=== PATIENT | male | born 1965 | race Caucasian/White ===

== ENCOUNTER 2021-02-23 01:17 | Observation (INO) ==
[2021-02-23] MEDS ORDERED: Acetaminophen 325 MG TABLET PO PRN ×2 (03:44→14:03)
[2021-02-23] MEDS ORDERED: Ondansetron 4 MG/2 ML VIAL IVP PRN ×2 (03:44→14:03)
[2021-02-23] MEDS ORDERED: Naloxone 0.4 MG/ML INJ IVP PRN ×2 (03:44→14:03)
[2021-02-23] MEDS ORDERED: 0.9 % Sodium Chloride 1,000 ML IVC SCH ×2 (03:45→14:03)
[2021-02-23 05:40] LABS: Basophils % 0.4 %; Eosinophils # 0.1 K/mcL (0.0-0.6); Hemoglobin 19.6 g/dL (12.9-16.9); Immature Granulocytes % 0.4 % (0-4); Lymphocytes # 1.3 K/mcL (0.6-4.6); Lymphocytes % 12.5 %; Mean Corpuscular HGB Conc 33.7 g/dL (31.6-35.5); Mean Corpuscular Hemoglobin 31.1 pg (28.0-33.3); Mean Corpuscular Volume 92.2 fL (83.0-100.0); Mean Platelet Volume 9.3 fL (9.4-12.4); Monocytes # 1.1 K/mcL (0.0-1.3); Monocytes % 9.9 %; Neutrophils # 8.2 K/mcL (1.6-8.9); Platelet Count 200 K/mcL (140-400); Red Cell Distribution Width 14.1 % (11.5-14.5); Segmented Neutrophils % 75.8 %; White Blood Count 10.8 K/mcL (4.3-11.1)
[2021-02-23 05:50] LABS: Hematocrit 58.1 % (37.5-50.1)
[2021-02-23 05:55] LABS: Prothrombin Time 11.5 Seconds (9.4-12.1)
[2021-02-23 05:57] LABS: Alanine Aminotransferase 309 Units/L (7-52); Albumin 3.9 g/dL (3.5-5.7); Albumin/Globulin Ratio 1.4 (1.1-2.2); Alkaline Phosphatase 61 Units/L (34-104); Aspartate Amino Transferase 299 Units/L (13-39); BUN/Creatinine Ratio 15 (6-26); Bilirubin,Total 1.8 mg/dL (0.3-1.0); Blood Urea Nitrogen 15 mg/dL (6-20); Calcium 8.9 mg/dL (8.6-10.3); Carbon Dioxide 26 mEq/L (23-29); Chloride 103 mEq/L (98-107); Chol/HDL Ratio 3.9 (0-4.9); Cholesterol 176 mg/dL (< 200); Globulin 2.7 g/dL (2.4-3.5); Glucose 116 mg/dL (70-105); HDL Cholesterol 45 mg/dL (40-59); LDL Cholesterol,Calculated 109 mg/dL (< 100); Magnesium 2.4 mg/dL (1.6-2.6); Osmolality,Calculated 286 (280-300); Potassium 3.5 mEq/L (3.5-5.1); Sodium 137 mEq/L (136-145); Total Protein 6.6 g/dL (6.4-8.9); Triglycerides 111 mg/dL (< 150); eGFR For African Americans > 60 (> 60); eGFR For Non-African Americans > 60 (> 60)
[2021-02-23 06:07] LABS: Amorphous Sediment,Urine Few per hpf (None-Few); Bacteria,Urine Few per hpf (None-Few); Bilirubin,Urine Negative (Negative); Blood,Urine Negative (Negative); Clarity,Urine Ex.Turbid (Clear); Color,Urine Yellow (Yellow); Glucose,Urine (UA) Normal (Normal); Ketones,Urine Negative (Negative); Leukocyte Esterase,Urine Negative (Negative); Nitrite,Urine Negative (Negative); Protein,Urine Trace mg/dL (Neg-Trace); Specific Gravity,Urine > 1.030 (1.010-1.025); Urobilinogen,Urine >=8.0 mg/dL (Normal)
[2021-02-23 06:18] LABS: Amphetamine Screen,Urine Negative ng/mL (Cutoff=1000); Barbiturate Screen,Urine Negative ng/mL (Cutoff=200); Benzodiazepines Screen,Urine Negative ng/mL (Cutoff=300); Cannabinoid Screen,Urine Negative ng/mL (Cutoff = 50); Cocaine Screen,Urine Negative ng/mL (Cutoff= 300); Opiate Screen,Urine Negative ng/mL (Cutoff=300); Phencyclidine Screen,Urine Negative ng/mL (Cutoff=25)
[2021-02-23] MEDS ORDERED: amLODIPine 5 MG TABLET PO SCH (09:00)
[2021-02-23] MEDS ORDERED: *HR* OxyCODONE Immed Rel 5 MG TABLET PO PRN ×2 (09:49→14:03)
[2021-02-23] MEDS ORDERED: *HR* FentaNYL (PF) 100 MCG/2 ML VIAL IVP PRN ×2 (09:49→14:03)
[2021-02-23] MEDS ORDERED: *HR* HYDROmorphone (PF) 1 MG/ML SYRINGE IVP PRN ×2 (09:49→14:03)
[2021-02-23] MEDS ORDERED: *HR* Meperidine 25 MG/ML SYRINGE IVP PRN ×2 (09:49→14:03)
[2021-02-23] MEDS ORDERED: *HR* Succinylcholine 200 MG/10 ML VIAL IVP ONE (10:29)
[2021-02-23] MEDS ORDERED: Ondansetron 4 MG/2 ML VIAL ONE (10:29)
[2021-02-23] MEDS ORDERED: *HR* Rocuronium Bromide 50 MG/5 ML VIAL ONE (10:29)
[2021-02-23] MEDS ORDERED: Dexamethasone 4 MG/ML VIAL ONE (10:29)
[2021-02-23] MEDS ORDERED: *HR* Propofol 200 MG/20 ML VIAL IVP ONE (10:29)
[2021-02-23] MEDS ORDERED: *HR* Midazolam HCl 2 MG/2 ML VIAL ONE (10:29)
[2021-02-23] MEDS ORDERED: *HR* FentaNYL (PF) 100 MCG/2 ML VIAL ONE (10:29)
[2021-02-23] MEDS ORDERED: Lidocaine -MPF 2% 2 ML VIAL ONE (10:29)
[2021-02-23] MEDS ORDERED: Lidocaine HCL 4 ML Topical Solution (Laryng-O-Jet Kit Sterile Pak) TP ONE (10:29)
[2021-02-23] MEDS ORDERED: Isovue-300 50ML VIAL ONE (11:30)
[2021-02-23] MEDS ORDERED: Water for inj. (sterile) 10 ML ONE (12:23)
[2021-02-23] MEDS ORDERED: CefOXitin 2,000 MG VIAL ONE (12:23)
[2021-02-23] MEDS ORDERED: cefOXitin 2,000 MG in Water for inj. (sterile) 20 ML IVP ONE (12:25)
[2021-02-23] MEDS ORDERED: *HR* HYDROMORPHONE 2 MG/ML VIAL ONE (12:41)
[2021-02-23] MEDS ORDERED: Sugammadex Sodium 200 MG/2 ML VIAL IV ONE (12:44)
[2021-02-23] MEDS ORDERED: Ketorolac 30 MG/ML VIAL ONE (12:58)
[2021-02-23] MEDS ORDERED: FLU Vac QV 20-21 (6Month+)/PF 0.5 ML SYRINGE IM ONE (15:34)
[2021-02-23 15:52] VITALS: BP 152/95
[2021-02-24] MEDS ORDERED: amLODIPine 5 MG TABLET PO SCH (09:00)
== END 2021-02-23 17:29 | disposition home or self-care (01) ==
LOC: 3ANU → SUATTDRO 02:17
PROVIDERS: ADMIT Internal Medicine; ATTEND Internal Medicine